=== PATIENT | male | born 1985 | race Caucasian/White ===

== ENCOUNTER 2016-07-04 16:23 | Emergency (ER) | payer BC ==
[~2016-07-04] VITALS: Ht 170.2 cm; Wt 80.4 kg
[2016-07-04 16:26] VITALS: TEMP 36.9; Ht 170.2 cm; Wt 80.4 kg
[2016-07-04] MEDS ORDERED: ONDANSETRON INJ 2 MG/ML 2 ML VIAL IV STA (17:10)
[2016-07-04] MEDS ORDERED: SODIUM CHLORIDE 0.9% 1000ML 1,000 ML IV STA (17:10)
[2016-07-04] MEDS ORDERED: OPTIRAY 320 IV PRN (17:15)
[2016-07-04 18:09] LABS: URINE APPEARANCE CLEAR (CLEAR); URINE BILIRUBIN NEG (NEG); URINE COLOR YELLOW; URINE NITRITE NEG (NEG); URINE SPECIFIC GRAVITY 1.008 (1.000-1.030); UROBILINOGEN NEG (NEG)
[2016-07-04 18:10] LABS: BASO % 0.2 %; BASO ABS # 0.01 K/uL (0-0.2); COMPLETE YES; EOS % 1.7 %; HEMATOCRIT 42.5 % (42-52); IG% 0.2 %; LYMPH % 26.7 %; LYMPH ABS # 1.76 K/uL (1.2-3.4); MEAN CELL VOLUME 88.7 fL (80-100); MEAN CORPUSCULAR HEMOGLOBIN 32.4 pg (25-34); MEAN CORPUSCULAR HGB CONC 36.5 g/dl (32-36); MEAN PLATELET VOLUME 9.5 fL (7.4-10.4); MONO % 6.1 %; NEUT % 65.1 %; PLATELET COUNT 186 K/uL (130-400); RED BLOOD COUNT 4.79 M/uL (4.7-6.1); WHITE BLOOD COUNT 6.59 K/uL (4.8-10.8)
[2016-07-04 18:15] LABS: BUN/CREATININE RATIO 15.1 (10-20); CALCIUM 9.6 mg/dl (8.5-10.1); CREATININE 0.91 mg/dl (0.60-1.40); POTASSIUM 4.1 mmol/L (3.5-5.1)
[2016-07-04 18:17] LABS: MANUAL MICROSCOPIC REQUIRED? NO; REVIEW REQ? NO
--- NOTE | 2016-07-04 18:51 | DIAGNOSTIC IMAGING REPORT ---
ULTRASOUND OF THE APPENDIX CLINICAL HISTORY: Right lower quadrant abdominal pain. COMPARISON STUDY: No priors. FINDINGS: Real-time, grayscale, and color flow sonography of the right lower quadrant was performed to assess for acute appendicitis. The appendix was not discretely visualized. No inflammatory changes or free fluid are seen in the right lower quadrant. No lymphadenopathy was seen. IMPRESSION: Nonvisualization of the appendix. Note that this does not exclude acute appendicitis. Electronically signed by: Josemanuel Fox M.D. 07/04/2016 6:50 PM Dictated Date/Time: 07/04/2016 6:49 PM
--- NOTE | 2016-07-04 19:52 | DIAGNOSTIC IMAGING REPORT ---
CT SCAN OF THE ABDOMEN AND PELVIS WITH IV CONTRAST CLINICAL HISTORY: Right lower quadrant abdominal pain. COMPARISON STUDY: Ultrasound of the right lower quadrant dated 07/04/2016. TECHNIQUE: Following the IV administration of 119 cc of Optiray 320, CT scan of the abdomen and pelvis is performed from the lung bases to the proximal femora. Images are reviewed in the axial, sagittal, and coronal planes. IV contrast was administered without complication. Automated dose control exposure was utilized. CT DOSE: 346.17 mGy.cm FINDINGS: Lung bases: The heart is normal in size and without pericardial effusion. The lung bases are clear. Liver: The contrast-enhanced liver is normal in size, contour, and attenuation. Focal fatty infiltration is seen adjacent to the falciform ligament. There is no intrahepatic biliary ductal dilatation. The hepatic veins and portal veins are patent. Gallbladder: Unremarkable. Spleen: The spleen is enlarged, measuring 15.5 cm in length. Pancreas: Unremarkable. Adrenal glands: Unremarkable. Kidneys: The contrast enhanced kidneys are normal in size and without hydronephrosis. The kidneys enhance symmetrically. Abdominal vasculature: The abdominal aorta is normal in course and caliber. Bowel: The small bowel and colon are normal in course and caliber. The appendix is well-visualized and normal. Peritoneum: There is no intraperitoneal free air or abdominal ascites. There is a tiny fat-containing umbilical hernia. Lymphadenopathy: None. Pelvic viscera: The bladder, prostate, and seminal vesicles are normal as visualized. Skeletal structures: No lytic or blastic lesions are seen. There are bilateral pars defects at L5. A posterior disc bulge is seen at L5-S1. IMPRESSION: 1. There are no acute infectious or inflammatory findings in the abdomen or pelvis. 2. Splenomegaly. Electronically signed by: Josemanuel Fox M.D. 07/04/2016 7:51 PM Dictated Date/Time: 07/04/2016 7:44 PM
[2016-07-04 20:32] VITALS: BP 140/71; PULSE 56; O2SAT 99
--- NOTE | 2016-07-05 02:05 | EMERGENCY ROOM VISIT NOTE ---
ED Visit Note First contact with patient: 16:37 Chief Complaint: Abdominal pain. History of Present Illness: Mr. Wilson is a 31 year-old white male who ambulates into the ED accompanied by female friend complaining of right lower quadrant abdominal pain. Historically patient reports patient is scheduled for a cholecystectomy in 6 days. Patient reports a gradual onset of right lower quadrant abdominal pain that started approximately 2 days ago. Since that time the pain has been constant and gradually increasing in intensity. The pain is currently described as cramping. The pain is nonradiating. He rates his discomfort 4/10. The pain worsens with all movements of flexion and extension of the abdomen. His pain is slightly improved with rest. He has not taken any medications for his discomfort prior to arrival at the hospital. Associated with the pain there has been chills but no manjit fever, decreased appetite, nausea without vomiting. Patient denies sweats, skin eruptions, skin color changes, upper respiratory tract symptoms, shortness of breath, chest pain, diarrhea, constipation, rectal bleeding, black/tarry stools, urinary symptoms, hematuria, vaginal bleeding, vaginal discharge, back/flank pain. Review of Systems: As noted above in history of present illness. All body systems were reviewed and found to be negative as noted above. Past Medical History: As previously noted. Current Medications: Patient denies. Allergies to Medications: Patient denies. Social History: Patient is currently employed; he feels safe in his home environment; he denies tobacco and alcohol use. Physical Examination: Vital Signs: Date Time Temp Pulse Resp B/P Pulse Ox O2 Delivery O2 Flow Rate FiO2 07/04/16 20:32 56 18 140/71 99 07/04/16 19:44 60 16 130/64 99 Room Air 07/04/16 16:26 36.9 62 18 136/84 99 Room Air GENERAL: 31-year-old male in mild to moderate distress due to pain, nontoxic- appearing, afebrile and hemodynamically stable. NEUROLOGICAL: Awake, alert and oriented to person, place and time. Answering questions appropriately and following commands. Normal gait. Good hand eye coordination. SKIN: Warm, dry and pink. No soft tissue eruptions or trauma noted. HEENT: Atraumatic and normocephalic. PERRL. Sclera white and conjunctiva pink. Oral cavity moist and pink. Pharynx is nonerythematous or edematous. Speech normal. No lymphadenopathy. Trachea midline. No jugular venous distention. BACK: No tenderness over the bony spine. No CVA tenderness. THORAX: Lungs sounds are clear to auscultation and equal bilaterally with symmetrical chest wall. No wheezing, rales or rhonchi. No crepitus, tenderness , subcutaneous air or deformities noted. HEART: Regular rate and rhythm. No gallops, rubs or murmurs are appreciated. ABDOMEN: Flat and soft with mild tenderness over McBurney's point. Positive bowel sounds in all quadrants. No guarding, rigidity or organomegaly. EXTREMITIES: Moves all extremities well on command and with purpose. All distal neurovascular statuses are intact and equal bilaterally. ED Course: Patient is assessed as noted above. Laboratory Testing: Test 07/04/16 17:42 07/04/16 17:56 Range/Units White Blood Count 6.59 4.8-10.8 K/uL Red Blood Count 4.79 4.7-6.1 M/uL Hemoglobin 15.5 14.0-18.0 g/dL Hematocrit 42.5 42-52 % Mean Corpuscular Volume 88.7 80-100 fL Mean Corpuscular Hemoglobin 32.4 25-34 pg Mean Corpuscular Hemoglobin Concent 36.5 32-36 g/dl Platelet Count 186 130-400 K/uL Mean Platelet Volume 9.5 7.4-10.4 fL Neutrophils (%) (Auto) 65.1 % Lymphocytes (%) (Auto) 26.7 % Monocytes (%) (Auto) 6.1 % Eosinophils (%) (Auto) 1.7 % Basophils (%) (Auto) 0.2 % Neutrophils # (Auto) 4.30 1.4-6.5 K/uL Lymphocytes # (Auto) 1.76 1.2-3.4 K/uL Monocytes # (Auto) 0.40 0.11-0.59 K/uL Eosinophils # (Auto) 0.11 0-0.5 K/uL Basophils # (Auto) 0.01 0-0.2 K/uL RDW Standard Deviation 40.4 36.4-46.3 fL RDW Coefficient of Variation 12.8 11.5-14.5 % Immature Granulocyte % (Auto) 0.2 % Immature Granulocyte # (Auto) 0.01 0.00-0.02 K/uL Sodium Level 139 136-145 mmol/L Potassium Level 4.1 3.5-5.1 mmol/L Chloride Level 104 98-107 mmol/L Carbon Dioxide Level 29 21-32 mmol/L Anion Gap 6.0 3-11 mmol/L Blood Urea Nitrogen 14 7-18 mg/dl Creatinine 0.91 0.60-1.40 mg/dl Est Creatinine Clear Calc Drug Dose 121.7 ml/min Estimated GFR () 131.5 Estimated GFR (Non- 113.5 BUN/Creatinine Ratio 15.1 10-20 Random Glucose 91 70-99 mg/dl Calcium Level 9.6 8.5-10.1 mg/dl Total Bilirubin 1.6 0.2-1 mg/dl Direct Bilirubin 0.4 0-0.2 mg/dl Aspartate Amino Transf (AST/SGOT) 58 15-37 U/L Alanine Aminotransferase (ALT/SGPT) 200 12-78 U/L Alkaline Phosphatase 62 45-117 U/L Total Protein 8.5 6.4-8.2 gm/dl Albumin 4.5 3.4-5.0 gm/dl Lipase 125 73-393 U/L Urine Color YELLOW Urine Appearance CLEAR CLEAR Urine pH 7.0 4.5-7.5 Urine Specific [place] 1.008 1.000-1.030 Urine Protein NEG NEG Urine Glucose (UA) NEG NEG Urine Ketones NEG NEG Urine Occult Blood NEG NEG Urine Nitrite NEG NEG Urine Bilirubin NEG NEG Urine Urobilinogen NEG NEG Urine Leukocyte Esterase NEG NEG Appendix Ultrasound: Was reviewed by myself and read by the radiologist showing no visible appendix consistent with appendicitis. Contrast Abdominal/Pelvic CT: Was reviewed by myself and read by the radiologist showing no acute infectious or inflammatory findings in the abdomen or pelvis, splenomegaly. Patient was hydrated with normal saline and received Zofran for nausea; he refused pain medications. Patient was reassessed multiple times during his stay in the emergency department. Patient's case was reviewed with Dr. Hilliard; we agreed on diagnostic approach, treatment, disposition and plan. Patient was educated about tonight's findings and instructed on his treatment plan; he verbalizes understanding and agreement with this plan. Clinical Impression: Right lower quadrant abdominal pain. Decision-Making: Initially my differential diagnosis I considered appendicitis, constipation, perforated viscus, testicular torsion, kidney stone and other causes. I did note that patient's liver function tests worse elevated. Patient reports his LFTs have been elevated since April of this year; I did have case management review his [facility] chart and I was able to see that his current LFTs are decreased from his last testing which was approximately one week ago. Disposition: Patient discharged home in stable condition accompanied by his ; prior to departure he was reassessed and subjectively reported that he was pain and symptom-free. Plan: Patient was encouraged to continue his current medications as prescribed by his surgeon and/or primary care provider. Patient was encouraged to follow-up with his surgeon tomorrow morning on today' s ED visit. Patient was encouraged return ED for worsening/uncontrolled pain, fevers, worsening nausea or any new/concerning symptoms.
[2016-07-05] MEDS ORDERED: FLUT0.15 NAE (09:20)
[2016-07-05] MEDS ORDERED: ONDA4TAB46 PO (09:20)
[2016-07-05] MEDS ORDERED: ASCO500C5 PO (09:20)
== END 2016-07-04 20:32 | disposition home or self-care (01) ==
LOC: C.EDB 16:24
DX: R10.31 Right lower quadrant pain (principal)

== ENCOUNTER 2016-07-11 10:32 | Day surgery (SDC) | payer BC ==
[2016-07-05 09:21] VITALS: BMI 28.0
[~2016-07-11] VITALS: Ht 170.2 cm; Wt 81.8 kg
[~2016-07-11 10:32] MED LIST: ASCO500C5 PO; CEFAZOLIN 2000 MG/60 ML D5W IV SCH; FLUT0.15 NAE; LACTATED RINGER'S 1000ML 1,000 ML IV SCH; LACTATED RINGER'S 1000ML 500 ML IV ONE; ONDA4TAB46 PO
[2016-07-11 11:05] VITALS: BP 137/80; PULSE 85; TEMP 36.7; O2SAT 100; Ht 170.2 cm; Wt 81.8 kg
[2016-07-11] MEDS ORDERED: GLYCOPYRROLATE INJ 0.2 MG/ML VIAL ONE ×2 (11:34→13:41)
[2016-07-11] MEDS ORDERED: FENTANYL CITRATE INJ 50 MCG/1 ML 2 ML VIAL ONE (11:34)
[2016-07-11] MEDS ORDERED: PROPOFOL IV EMULSION 10 MG/ML 20 ML VIAL IV ONE (11:34)
[2016-07-11] MEDS ORDERED: ROCURONIUM BROMIDE 10 MG/ML 5 ML VIAL ONE (11:34)
[2016-07-11] MEDS ORDERED: LIDOCAINE HCL 2% 2 ML VIAL (20MG/ML) ONE (11:34)
[2016-07-11] MEDS ORDERED: ONDANSETRON INJ 2 MG/ML 2 ML VIAL ONE ×2 (11:34→14:23)
[2016-07-11] MEDS ORDERED: MIDAZOLAM HCL 1 MG/ML 2ML VIAL ONE (11:34)
[2016-07-11] MEDS ORDERED: DEXAMETHASONE SOD INJ 4 MG/ML VIAL ONE (11:34)
[2016-07-11] MEDS ORDERED: ATROPINE SULFATE 0.1 MG/ML 5ML SYR IV PRN (11:45)
[2016-07-11] MEDS ORDERED: MoRPHine SULFATE 10 MG/ML CARP/VIAL IV PRN (11:45)
[2016-07-11] MEDS ORDERED: EpHEDrine SULFATE INJ 50 MG/ML AMP IV PRN (11:45)
[2016-07-11] MEDS ORDERED: ONDANSETRON INJ 2 MG/ML 2 ML VIAL IV PRN ×2 (11:45→15:00)
[2016-07-11] MEDS ORDERED: MEPERIDINE HCL 25 MG/ML CARP IV PRN (11:45)
--- NOTE | 2016-07-11 12:29 | History & Physical Bridge Note ---
H&P Re-Evaluation Bridge Note: I have examined the patient, reviewed the History & Physical and in the interval since the performance of the History & Physical I have noted the following changes of clinical significance: No changes noted
[2016-07-11] MEDS ORDERED: LIDOCAINE HCL 1% 20 ML VIAL ONE (12:57)
[2016-07-11] MEDS ORDERED: BUPIVACAINE 0.5 % 5 MG/1 ML MPF 30ML VIAL ONE (12:58)
[2016-07-11] MEDS ORDERED: BACITRACIN OINT 15 GM TUBE ONE (12:58)
[2016-07-11] MEDS ORDERED: EpHEDrine SULFATE 50MG/5ML SYR ONE (13:43)
[2016-07-11] MEDS ORDERED: ESMOLOL HCL 10 MG/ML 10 ML VIAL ONE (14:03)
--- NOTE | 2016-07-11 14:19 | [facility] Post Operative Brief Note ---
Immediate Operative Summary Operative Date Jul 11, 2016. Pre-Operative Diagnosis CHOLELITHIASIS & CHOLECYSITIS Post-Operative Diagnosis SAME PREOP Procedure(s) Performed Laparoscopic Cholecystectomy Surgeon DR. KEY Compliance Project Manager Surgeon(s) BARRON GUALLPA PA-C Estimated Blood Loss 10mL Findings chronic cholecystitis Specimens A:GALLBLADDER Drains none Anesthesia general Complication(s) None Disposition Recovery Room / PACU
--- NOTE | 2016-07-11 14:51 | Discharge Instructions ---
Discharge Instructions Date of Service Jul 11, 2016. Admission Reason for Admission: Right Upper Quadrant Abdominal Pain Discharge Discharge Diagnosis / Problem: status post laparoscopic cholecystectomy Discharge Goals Goal(s): Decrease discomfort Activity Recommendations Activity Limitations: as noted below No heaving lifting over 20 pounds for 3 weeks No strenuous activity until cleared by surgeon Walking is encouraged to prevent blood clots No driving while taking narcotic pain medication . Instructions / Follow-Up Instructions / Follow-Up You may shower and then remove dressings in days, sponge bath in meantime Steri strips on incision may be removed in 7 days, if they fall off before that is okay You do not need to keep incisions covered however if they are drainage, keep covered No submerging incision underwater for 2 weeks You may take extra strength Ibuprofen in between Percocet, do NOT take Tylenol with Percocet as it has Tylenol in it Follow-up in surgical office with DR. Cochran in 1 week, please call office at if you do not already have an appointment. Current Hospital Diet Patient's current hospital diet: Discharge Diet Recommended Diet: Regular Diet Procedures Procedures Performed: Laparoscopic Cholecystectomy Pending Studies Studies pending at discharge: no Medical Emergencies . Who to Call and When: Medical Emergencies: If at any time you feel your situation is an emergency, please call 911 immediately. . Non-Emergent Contact Non-Emergency issues call your: Primary Care Provider, Surgeon Call Non-Emergent contact if: you have a fever, temperature is above 101.5, your pain is not controlled, your pain is worsening, wound has increased drainage, wound has increased redness, wound has increased pain . "Provider Documentation" section prepared by Sahara Thorne. VTE Core Measure Inpt VTE Proph given/why not?: SCD's [place] Drug Monitoring Program Search Results: patient reviewed within database, no issues identified
[2016-07-11] MEDS ORDERED: OXYC-57 PO (14:52)
[2016-07-11] MEDS: FENTANYL CITRATE INJ 50 MCG/1 ML 2 ML VIAL IV PRN ×2 (15:00→15:05)
[2016-07-11] MEDS ORDERED: OXYCODONE/ACETAMINOPHEN 5-325 TAB PO PRN (15:00)
--- NOTE | 2016-07-11 15:04 | OPERATIVE REPORT ---
DATE OF OPERATION: 07/11/2016 PREOPERATIVE DIAGNOSIS: Chronic cholecystitis, cholelithiasis. POSTOPERATIVE DIAGNOSIS: Same. PROCEDURE: Laparoscopic cholecystectomy. SURGEON: Sana Cochran M.D. SR VICE PRESIDENT: Sahara Thorne PA-C. ANESTHESIA: General. ESTIMATED BLOOD LOSS: About 10 mL. FINDINGS: Chronic cholecystitis. COMPLICATIONS: None. IV FLUIDS: 1200 mL. INDICATIONS FOR THE PROCEDURE: This is a 31-year-old gentleman who presented with right upper quadrant pain. The patient had ultrasound showed cholecystitis with cholelithiasis. The patient required to do laparoscopic cholecystectomy. I did talk to the patient about the benefit and risk, alternate procedure. I indicated the risks may include but not limited such as bleeding, infection, injury to common bile duct, injury to bowel, bile leak, may need ERCP incisional hernia, even . The patient understands. He signed informed consent and I answered all questions. DETAILS OF PROCEDURE: We brought the patient to the OR, put the patient in the supine position. The patient received SCD on bilateral legs to prevent DVT. Also, the patient received 2 grams Ancef IV for prophylactic antibiotic. The patient received general anesthesia without difficulty. The abdomen was prepped and draped in routine sterile fashion. After time out, I injected local anesthesia medication by using 1% lidocaine mixed with 0.25% Marcaine just above the umbilical. Then I made a small incision just above umbilical, opened fascia and opened peritoneum under direct vision. We put a Jason trocar in, connected to CO2 to create pneumoperitoneum. Flow rate 6 liter per minute. Pressure not more than 14 mmHg. Once we got a nice pneumoperitoneum, we put a 10 mm camera in to look around the abdomen showing no more findings on the stomach, small bowel, large bowel and liver. However, there are omentum covering the gallbladder showing chronic cholecystitis, gallbladder wall thickening, edema. Then, we put another 3.5 mm trocar on the right upper quadrant. Once all trocars in I put grasper in to hold the base of the gallbladder, put direction to the diaphragm and put another grasper in to hold the pouch over the gallbladder, put latter to expose the triangle of Calot. The cystic duct was identified and mobilized. Then I put two 5 mm metal clips on the proximal cystic duct, one on the distal cystic duct. Then, I used scissor transection the cystic duct. Then the cystic artery was identified and mobilized. Then I put two 5 mm metal clips on the proximal cystic artery, 1 on the distal cystic artery. Then, I used scissor transection the cystic artery. Then I used Bovie to take down the gallbladder through the liver bed without difficulty. No bile leak and no active bleeding after we take out gallbladder. Then we pulled out the gallbladder through the catch bag, then we reinserted Jason trocar in connected to CO2 to create pneumoperitoneum, again looked around the abdomen. No active bleeding, no bile leak on the liver bed and no injury to bowel. Then we removed all trocars under direct vision, no active bleeding from trocar sites. The pneumoperitoneum was released. Then I closed the umbilical incision, fascial layer by using #1 Vicryl [id number] x2, closed subcutaneous layer by using 2-0 Vicryl, closed skin by using 4-0 Vicryl. Then I closed another 3.5 mm trocar site skin only by using 4-0 Vicryl. All the instrument, needle, sponge count correct x2 at the end of the case. The patient tolerated the procedure well. The patient transferred to recovery room in stable condition. After the procedure, I did talk to the patient's family member about the OR finding and procedure we did, they understand. Also, we gave the patient and the patient's family member about the postop care instruction, they understand. I will follow up the patient in 1 week. SPECIMEN: Gallbladder sent to pathology. I attest to the content of the Intraoperative Record and any orders documented therein. Any exceptions are noted below. LISET
--- NOTE | 2016-07-11 15:30 | Anesthesiology Progress Note ---
Anesthesia Post Op Note Date & Time Jul 11, 2016 at 15:30 Vital Signs Pain Intensity: 2 Vital Signs Past 12 Hours Date Time Temp Pulse Resp B/P Pulse Ox O2 Delivery O2 Flow Rate FiO2 07/11/16 15:05 62 16 130/69 100 07/11/16 15:05 62 16 07/11/16 15:05 62 16 130/69 100 07/11/16 15:05 62 16 07/11/16 15:00 63 13 141/73 100 07/11/16 15:00 63 13 141/73 100 07/11/16 15:00 63 13 07/11/16 15:00 63 13 07/11/16 14:55 63 20 141/72 100 07/11/16 14:55 65 20 07/11/16 14:55 65 20 07/11/16 14:55 63 20 141/72 100 07/11/16 14:50 66 14 07/11/16 14:50 65 14 135/71 100 07/11/16 14:50 66 14 07/11/16 14:50 65 14 135/71 100 07/11/16 14:46 130/71 07/11/16 14:46 130/71 07/11/16 14:45 70 15 100 07/11/16 14:45 70 15 100 07/11/16 14:45 71 15 07/11/16 14:45 71 15 07/11/16 14:41 138/72 07/11/16 14:41 138/72 07/11/16 14:40 70 21 100 07/11/16 14:40 70 21 07/11/16 14:40 70 21 100 07/11/16 14:40 70 21 07/11/16 14:35 71 17 127/48 100 07/11/16 14:35 36.0 72 16 127/48 100 Mask 10 07/11/16 14:35 72 17 07/11/16 14:35 71 17 127/48 100 07/11/16 14:35 72 17 07/11/16 11:05 36.7 85 20 137/80 100 Room Air Notes Mental Status: alert / awake / arousable, participated in evaluation Pt Amnestic to Procedure: Yes Nausea / Vomiting: adequately controlled Pain: adequately controlled Airway Patency, RR, SpO2: stable & adequate BP & HR: stable & adequate Hydration State: stable & adequate Anesthetic Complications: no major complications apparent
[2016-07-11 15:40] VITALS: BP 128/53; PULSE 75; TEMP 36.8; O2SAT 98
[2016-07-11 16:15] VITALS: BP 131/52; PULSE 78; TEMP 36.8; O2SAT 99
[2016-07-12] MEDS ORDERED: CEFAZOLIN IV 2,000 MG/60 ML D5W IV ONE (06:00)
== END 2016-07-11 17:00 | disposition home or self-care (01) ==
LOC: C.ACU 10:32
PROVIDERS: ATTEND Surgery
DX: K82.4 Cholesterolosis of gallbladder (principal); J45.909 Unspecified asthma, uncomplicated